=== PATIENT | female | born 1965 | race Caucasian/White ===

== ENCOUNTER 2023-03-01 09:41 | Outpatient (CLI) | payer BC, SELFPAY ==
--- NOTE | 2023-03-21 17:13 | WPDHOMESLEEP ---
Sleep Study - Home Unattended Date of Study: 03/01/23 Ordering Provider: Malathi Deluca, Interpreting Provider: Tammie Lopez, DO Home Sleep Study Type: Watch PAT Height: 1.65 m Weight: 112.037 kg Body Mass Index: 41.1 Neck Circumference (inches): 15.5 [place]: 12 Reason for Sleep Study Snoring, nocturnal gasping Sleep History The patient is a 57-year-old female with hypertension, GERD, arthritis, seasonal allergies and history of tobacco use that he had a sleep study ordered by her primary care for evaluation of sleep apnea. The patient frequently awakens from sleep short of breath. She frequently awakens at night with heartburn, belching or cough. She constantly snores loudly enough that others complain. She constantly has trouble sleeping when she has a cold. She frequently wakes up gasping for air throughout the night. She constantly has breathing problems at night observed by herself or others. She frequently sweats excessively at night. She rarely has heart palpitations or irregular heartbeats during the night. He occasionally falls asleep during the day but never while driving. He denies sleep paralysis and cataplexy. She denies having trouble at school or work due to sleepiness. She rarely experiences vivid dreamlike scenes upon awakening or falling asleep. She denies feeling afraid of going to sleep. She rarely has nightmares and occasionally remembers her dreams. She frequently has thoughts racing through her mind. She denies feeling sad or depressed. She frequently has anxiety. She frequently has muscular tension. She occasionally notices parts of her body jerk. She rarely kicks during the night. She frequently has crawling and aching feelings in her legs and constantly has leg pain during the night. She denies grinding her teeth during sleep and denies awakening with morning jaw pain. She is occasionally bothered by pain during the day and occasionally awakened by pain during the night. She constantly wakes up feeling stiff in the morning. She frequently wakes up with sore or achy muscles. She constantly wakes up with pain in the neck, spine and other joints. She goes to bed between 8:30-9 p.m. on weekdays and between 9-10 p.m. on the weekends. It takes her 10-15 minutes to fall asleep. He wakes up 4-6 times throughout the night for unknown reasons in a can take up to an hour for her to fall back asleep. He wakes up between 4:30-5 a.m. on weekdays and between 5-5:30 a.m. on the weekends. She typically gets 5-6 hours of sleep per night. She denies staying in bed after waking up in the morning. He currently lives with her and adult son. She denies consuming any caffeinated beverages within 2 hours of bedtime. She denies engaging in physical exercise before bedtime. She will watch television before falling asleep. She denies taking naps in afternoon or the evening. She consumes 1 cup of coffee per day. She will consume 10-12 alcoholic beverages per weekend. She quit smoking cigarettes 25 years ago. She denies recreational drug use. [facility] Surgical History Surgical History H/O gynecological procedure HSCOPE D&C/ENDOCERVICAL BX (PMB - benign) History of bladder surgery TVT History of cholecystectomy History of endometrial ablation History of tubal ligation Family History Family History Other Cerebrovascular accident Diabetes mellitus Heart disease Lung cancer Social History Social History Smoking status: Never smoker Alcohol intake: current Alcohol use details: socially Substance use: never Substance use type: does not use Living arrangements: with family Occupation/Education: occupation Additional occupation/education comments: [employer]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
[2023-03-21 17:22] VITALS: BMI 41.1
== END 2023-03-02 08:00 | disposition home or self-care (01) ==
LOC: ANHCSM 09:43
PROVIDERS: PCP Family Medicine; Visit Provider Family Medicine
DX: G47.30 Sleep apnea, unspecified (principal); G47.33 Obstructive sleep apnea (adult) (pediatric)
CPT/HCPCS: 95800